=== PATIENT | female | born 1960 | race Two or more races ===

== ENCOUNTER 2017-03-17 11:12 | Emergency (ER) | payer SELFPAY ==
[2017-03-17] MEDS ORDERED: KETOROLAC TROMETH 60MG/2ML VIAL IM ONE (13:30)
[2017-03-17 13:57] VITALS: BP 106/55
== END 2017-03-17 14:18 | disposition home or self-care (01) ==
LOC: ER 11:12
DX: S83.8X1A Sprain of other specified parts of right knee, initial encounter (principal); M23.91 Unspecified internal derangement of right knee; X50.0XXA Overexertion from strenuous movement or load, initial encounter; Y93.89 Activity, other specified; Y99.8 Other external cause status; Y92.090 Kitchen in other non-institutional residence as the place of occurrence of the external cause
CPT/HCPCS: 73562; 96372; 99284; J1885